=== PATIENT | male | born 1960 | race Caucasian/White ===

== ENCOUNTER 2018-06-25 11:42 | Emergency (ER) | payer BC ==
--- NOTE | 2018-06-25 12:07 | EDM.PDOC ---
ED HPI GENERAL MEDICAL PROBLEM - General Chief Complaint: Neurological Problem Stated Complaint: NUMBNESS RT SIDE Time Seen by Provider: 06/25/18 11:42 Source of Information: Reports: Patient History Limitations: Reports: No Limitations - History of Present Illness INITIAL COMMENTS - FREE TEXT/NARRATIVE: 57 years old w m came with a H/O of Non Hodgkin lymphoma, to the ED, due to numbness at his right face. No trauma, pt can open and close his eyes in full. Tongue midline, no pain, pt drinks daily. No other acute medical issues. BP 158 /87 Pulse 78 RR 20 Temp 36.8 Pulse ox 99% on RA Onset Date: 06/25/18 Onset Time: 07:00 Duration: Hour(s):, Constant Location: Reports: Face Quality: Reports: Other (numb) Severity: Mild Improves with: Reports: None Worsens with: Reports: None Context: Reports: Activity Associated Symptoms: Reports: No Other Symptoms - Related Data Allergies Allergy/AdvReac Type Severity Reaction Status Date / Time No Known Allergies Allergy Verified 06/25/18 11:47 Home Meds: Home Meds Fluticasone Propionate [Flonase] 1 spray NASBOTH BID PRN 09/06/13 [History] Omeprazole [Prilosec] 20 mg PO DAILY 09/06/13 [History] Cephalexin [Take Home: Cephalexin 500 MG, 4 Cap Pack] 500 mg PO TID PRN [History] Carvedilol 3.125 mg PO BID 01/22/16 [History] amLODIPine Besylate [Amlodipine Besylate] 10 mg PO DAILY 01/22/16 [History] Acyclovir 800 mg PO 5XDAY #35 tablet 06/25/18 [Rx] predniSONE 40 mg PO .Daily Taper #180 tab 06/25/18 [Rx] Past Medical History Cardiovascular History: Reports: Heart Murmur, Hypertension Other Cardiovascular History: PT DENIES BUT HEARD ON AUSCULTATION Other Genitourinary History: STARTED VOIDING BLOOD TODAY Other Psychiatric History: TOOK SELF OFF PAXIL ABOUT 5 MONTHS AGO. [facility] IS AWARE. Endocrine/Metabolic History: Reports: Obesity/BMI 30+ Oncologic (Cancer) History: Reports: Non-Hodgkin's Lymphoma Other Dermatologic History: GUSTAVO HANDS AND FEET - Infectious Disease History Infectious Disease History: Reports: Chicken Pox, Shingles - Past Surgical History GI Surgical History: Reports: Other (See Below) Musculoskeletal Surgical History: Reports: Other (See Below) Oncologic Surgical History: Reports: Other (See Below) Social & Family History - Family History Family Medical History: Noncontributory - Living Situation & Occupation Living situation: Reports: Occupation: Employed ED ROS GENERAL - Review of Systems Review Of Systems: See Below Constitutional: Reports: No Symptoms HEENT: Reports: No Symptoms Respiratory: Reports: No Symptoms Cardiovascular: Reports: No Symptoms Endocrine: Reports: No Symptoms GI/Abdominal: Reports: No Symptoms : Reports: No Symptoms Musculoskeletal: Reports: No Symptoms Skin: Reports: No Symptoms Neurological: Reports: Paresthesia (right cheek) Psychiatric: Reports: No Symptoms Hematologic/Lymphatic: Reports: No Symptoms Immunologic: Reports: No Symptoms ED EXAM, NEURO - Physical Exam Exam: See Below Exam Limited By: No Limitations General Appearance: Alert, WD/WN, Mild Distress Eye Exam: Bilateral Eye: Normal Inspection Ears: Normal External Exam Nose: Normal Inspection Throat/Mouth: Normal Inspection, Normal Lips, Normal Voice, No Airway Compromise Head Exam: Atraumatic, Normocephalic Neck: Normal Inspection, Supple, Non-Tender, Full Range of Motion Respiratory/Chest: No Respiratory Distress, Lungs Clear, Normal Breath Sounds, No Accessory Muscle Use, Chest Non-Tender Cardiovascular: Normal Peripheral Pulses, Regular Rate, Rhythm, No Edema, No Gallop, No Murmur, No Rub GI/Abdominal: Normal Bowel Sounds, Soft, Non-Tender, No Organomegaly, No Distention, No Abnormal Bruit, No Mass, Pelvis Stable (Male) Exam: Deferred Rectal (Males) Exam: Deferred Neurological: Alert, Normal Mood/Affect, Normal Dorsiflexion, CN II-XII Intact, Normal Plantar Flexion, Normal Gait, Normal Reflexes, Other (Paresthesia) Back Exam: Normal Inspection Extremities: Normal Inspection, Normal Range of Motion, Non-Tender, Pedal Edema (H/O Lymphedema right lower extremity) Psychiatric: Normal Affect, Normal Mood Skin Exam: Warm, Dry, Intact, Normal Color, No Rash Course - Vital Signs Text/Narrative:: 57 years old w m came with a H/O of Non Hodgkin lymphoma, to the ED, due to numbness at his right face. No trauma, pt can open and close his eyes in full. Tongue midline, no pain, pt drinks daily. No other acute medical issues. 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 Last Recorded V/S: Last Vital Signs Temp 37.0 C 06/25/18 12:50 Pulse 86 06/25/18 12:50 Resp 20 06/25/18 12:50 BP 148/78 H 06/25/18 12:50 Pulse Ox 100 06/25/18 12:50 - Orders/Labs/Meds Labs: Laboratory Tests 06/25/18 06/25/18 06/25/18 Range/Units 12:05 12:05 12:05 WBC 6.3 (4.5-12.0) X10-3/uL RBC 4.93 (4.30-5.75) x10(6)uL Hgb 16.1 H D (11.5-15.5) g/dL Hct 47.2 (30.0-51.3) % MCV 95.7 (80-96) fL MCH 32.6 (27.7-33.6) pg MCHC 34.0 (32.2-35.4) g/dL RDW 13.0 (11.5-15.5) % Plt Count 363 (125-369) X10(3)uL MPV 7.7 (7.4-10.4) fL Add Manual Diff Yes Neutrophils % (Manual) 66 (46-82) % Lymphocytes % (Manual) 23 (13-37) % Monocytes % (Manual) 9 (4-12) % Eosinophils % (Manual) 2 (0-5) % PT 9.3 (8.7-11.1) INR 0.96 (0.89-1.13) Sodium 129 L (135-145) mmol/L Potassium 3.8 (3.5-5.3) mmol/L Chloride 91 L (100-110) mmol/L Carbon Dioxide 30 (21-32) mmol/L BUN 11 (7-18) mg/dL Creatinine 1.1 (0.70-1.30) mg/dL Est Cr Clr Drug Dosing TNP Estimated GFR (MDRD) > 60 (>60) BUN/Creatinine Ratio 10.0 (9-20) Glucose 99 (80-116) mg/dL Calcium 9.5 (8.6-10.2) mg/dL Ethyl Alcohol (<0.03) % 06/25/18 Range/Units 12:05 WBC (4.5-12.0) X10-3/uL RBC (4.30-5.75) x10(6)uL Hgb (11.5-15.5) g/dL Hct (30.0-51.3) % MCV (80-96) fL MCH (27.7-33.6) pg MCHC (32.2-35.4) g/dL RDW (11.5-15.5) % Plt Count (125-369) X10(3)uL MPV (7.4-10.4) fL Add Manual Diff Neutrophils % (Manual) (46-82) % Lymphocytes % (Manual) (13-37) % Monocytes % (Manual) (4-12) % Eosinophils % (Manual) (0-5) % PT (8.7-11.1) INR (0.89-1.13) Sodium (135-145) mmol/L Potassium (3.5-5.3) mmol/L Chloride (100-110) mmol/L Carbon Dioxide (21-32) mmol/L BUN (7-18) mg/dL Creatinine (0.70-1.30) mg/dL Est Cr Clr Drug Dosing Estimated GFR (MDRD) (>60) BUN/Creatinine Ratio (9-20) Glucose (80-116) mg/dL Calcium (8.6-10.2) mg/dL Ethyl Alcohol < 0.03 (<0.03) % Meds: Medications Discontinued Medications Generic Name Dose Route Start Last Admin Trade Name Freq PRN Reason Stop Dose Admin Prednisone 60 mg 06/25/18 12:24 06/25/18 12:45 Prednisone PO 06/25/18 12:25 60 mg ONETIME STA Administration Departure - Departure Time of Disposition: 12:47 Disposition: Home, Self-Care 01 Condition: Good Clinical Impression: Mayr's palsy, Low sodium levels - Discharge Information Prescriptions: Acyclovir 800 mg PO 5XDAY #35 tablet predniSONE 40 mg PO .Daily Taper #180 tab Referrals: David Braswell MD [Primary Care Provider] - Forms: ED Department Discharge Additional Instructions: Please take Acyclovir as recommended, please take prednison as recommended, please f/u, come back if your symptoms get worse acutely. Please check your Sodium level in 1 week.
[2018-06-25] MEDS ORDERED: predniSONE 10 MG Tab PO STA (12:24)
[2018-06-25 13:02] VITALS: BP 148/78
--- NOTE | 2018-06-25 13:10 | CT ---
INDICATION: Right face numbness since [address] HEAD WITHOUT CONTRAST: Axial spiral imaging of the brain with sagittal and coronal reconstructions was obtained 06/25/18--no comparisons. Total exam DLP = 628.94 mGy-cm. The visualized paranasal sinuses and the right mastoid air cells appeared to be well aerated. At the left mastoid air cells there appears to be relatively poor aeration raising question of mastoiditis. This should be correlated clinically. No definite cranial abnormality was seen. The orbits appear to be intact. No shift of midline structures were seen. Ventricles are somewhat prominent suggesting a mild degree of central atrophy. No abnormal areas of density were identified. No bleeding site or hematoma was seen. IMPRESSION: 1. No acute intracranial abnormality. 2. Relatively prominent ventricles suggest the possibility of central atrophy of mild degree in this age group. Report was called to Dr. Hollingsworth at 1225 hours. [facility]
== END 2018-06-25 12:55 | disposition home or self-care (01) ==
LOC: FB.ED 11:42
DX: G51.0 Bell's palsy (principal); E87.1 Hypo-osmolality and hyponatremia; I10 Essential (primary) hypertension; Z98.890 Other specified postprocedural states; Z79.899 Other long term (current) drug therapy
CPT/HCPCS: 36415; 70450; 80048; 85025; 85610; 99284; A9270; G0480